=== PATIENT | female | born 1965 | race Caucasian/White ===

== ENCOUNTER 2020-06-11 21:46 | Emergency (ER) | payer OTHER, SELFPAY ==
--- NOTE | ~2020-06-11 | US_ITS ---
EXAMINATION: US VENOUS ULTRASOUND WITH DOPPLER LOWER EXTREMITY, RIGHT CLINICAL INFORMATION: Right lower extremity pain. COMPARISON: None TECHNIQUE: Ultrasound of the deep veins is performed from the hip to the calf with compression sonography and color and pulse Doppler assessment. Spectral analysis with color-flow imaging is performed. FINDINGS: There is normal venous compression and respiratory variation and augmented flow. The visualized common femoral vein, superficial femoral vein, profunda femoral vein, popliteal vein, and the trifurcation region shows no evidence of deep venous thrombosis. There is no significant popliteal fossa cyst. If the patient's symptoms persist, followup ultrasound in 5 days 7 days might be of value to exclude proximal propagation from a non-visualized calf vein. US/US venous duplex LE RT IMPRESSION: No DVT demonstrated in the right lower extremity.
[2020-06-11 21:51] VITALS: BP 143/73; BP 156/83; PULSE 100; PULSE 106; RESP 16; TEMP 36.6; O2SAT 100; O2SAT 97; BMI 30.7
[2020-06-12 00:31] VITALS: BP 142/90; PULSE 96; RESP 20; TEMP 36.6; O2SAT 98
[2020-06-12 01:07] VITALS: BP 137/63; PULSE 77; RESP 20; TEMP 36.6; O2SAT 97
--- NOTE | 2020-06-12 01:08 | ED.LOWEXIN ---
HPI - Extremity Injury (Lower) General Chief Complaint: Extremity Injury, Lower Stated Complaint: LEG PAIN Time Seen by Provider: 06/11/20 22:09 Source: patient Mode of arrival: ambulatory History of Present Illness HPI Narrative: 55-year-old female with no significant past medical history presenting to the ED complaining of right lower extremity/calf pain S/P hearing pop in leg this afternoon. States she has concern for possible blood clot. Admits went to PCP recently for similar pain and was given PT referral. Denies known injury/trauma or fall, numbness, tingling, weakness, recent travel, LE edema, smoking, SOB complaint: leg injury Related Data Allergies Allergy/AdvReac Type Severity Reaction Status Date / Time Iodinated Contrast Media Allergy Shortness Verified 06/11/20 21:56 [Contrast Dye] of Breath Sulfa (Sulfonamide Allergy Anaphylaxis Verified 06/11/20 21:56 Antibiotics) Review of Systems Review of Systems: Constitutional: No Fever, No Chills Cardiovascular: No Chest Pain, No SOB Respiratory: No Cough Musculoskeletal: + joint pain, No Myalgias, No Joint Swelling Skin: No Skin Lesions, No rash Neuro: No Weakness, No Numbness, No Paresthesias Yes all other systems are reviewed and are negative [facility] Past Medical History Attestation statement: The following information was validated with the patient. Social History Social History Advance Directives: No Advance Directives Information Provided: Yes Physical Exam Vital Signs: Vital Signs: Last Vital Signs Temp 98 F 06/12/20 01:07 Pulse 77 06/12/20 01:07 Resp 20 06/12/20 01:07 BP 137/63 06/12/20 01:07 Pulse Ox 97 06/12/20 01:07 Body Mass Index 30.7 Const: General: cooperative and healthy appearing Orientation/consciousness: patient oriented x3 Limitations: no limitations HENMT: Head: Yes normal to inspection Ears: hearing grossly normal bilaterally General nose exam: Normal external nose present Face and sinus: Yes normal facial exam Eyes: General: appearance normal, both eyes and all related structures EOM: EOMs intact bilaterally Neck: Neck: Yes normal visual inspection and Yes no meningeal signs Resp: Effort & Inspection: normal respiratory effort Cardio: Rate: regular rate Peripheral pulses: dorsalis pedis present Skin: Rashes: no rashes Wounds: no wounds Neuro: General: patient oriented x3 and no meningeal signs Gait exam (Neuro): Normal gait present Extrem: Other: Right calf with tenderness to palpation. No edema/swelling or deformity. Neurovascularly intact. General: Yes normal to inspection and Yes calf tenderness (Right) Course Course Course Narrative: US venous duplex LE RT IMPRESSION: No DVT demonstrated in the right lower extremity. >> results discussed with patient including worrisome signs and symptoms and strict return precautions. she verbalized understanding feel safe for discharge home MDM - Extremity Injury (Lower) MDM Narrative Medical decision making narrative: Concern for possible DVT vs MSK pain/strain. Low concern for PE. Low concern for fracture/dislocation Plan: Venous duplex ultrasound Discharge Plan Discharge Clinical Impression: Leg pain, right Patient Disposition: Home, Self-Care Instructions: Leg Pain (ED) Additional Instructions: Your ultrasound was negative for any blood clot If her symptoms persist is recommended you have a repeat follow-up ultrasound in 5-7 days If you develop any constant worsening pain, numbness, tingling, weakness, shortness of breath or fever return to the ED Follow-up with her doctor Take Tylenol/ Motrin for pain Referrals: Cheyenne Chatman MD [Primary Care Provider] - 5 days
--- NOTE | 2020-06-12 01:09 | PC.NURSE ---
REPORT ON PT GIVEN TO CELESTINA JON AND NED HERNANDEZ WILL BE OVER TO TALK TO PT ABOUT IMAGING.
== END 2020-06-12 01:20 | disposition home or self-care (01) ==
PROVIDERS: Emergency Provider Emergency Medicine; PCP Family Medicine
DX: M79.604 Pain in right leg (principal); R60.0 Localized edema
CPT/HCPCS: 93971; 99283

== ENCOUNTER 2024-06-28 16:24 | Emergency (ER) | payer OTHER, SELFPAY ==
--- NOTE | ~2024-06-28 | XR_ITS ---
CLINICAL HISTORY: L pinky laceration 3 views left 5th digit: Comparison: None Findings: No fractures or dislocations. No significant arthritic change. No erosions. No radiopaque foreign body. Impression: Soft tissue swelling with no acute skeletal abnormality. This document has been electronically signed by: Eliu Leung MD on 06/28/2024 17:56:54
--- NOTE | 2024-06-28 16:25 | ED_ITS ---
HPI - Skin/Abscess/Foreign Bdy General Chief complaint: Wound/Laceration Stated complaint: L pinky lac Time Seen by Provider: 06/28/24 16:35 Source: patient Mode of arrival: ambulatory Limitations: no limitations History of Present Illness ED Provider: ANETA MORENO PA-C HPI narrative: 59 year-old female presenting to the ED for evaluation of a left pinky laceration that occurred earlier today. 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 Patient unsure of date of last tetanus. Related Data Allergies Allergy/AdvReac Type Severity Reaction Status Date / Time Iodinated Contrast Media Allergy Shortness Verified 06/28/24 16:29 [Contrast Dye] of Breath Sulfa (Sulfonamide Allergy Anaphylaxis Verified 06/28/24 16:29 Antibiotics) Review of Systems Review of Systems: Yes all other systems are reviewed and are negative PMFSH Past Medical History Attestation statement: The following information was validated with the patient. Source: old records reviewed and nursing notes reviewed Social History Social History Advance Directives: No Advance Directives Information Provided: No Do you have a plan to hurt others: No Plan Physical Exam Vital Signs: Vital Signs: Last Vital Signs Temp 98.4 F 06/28/24 18:09 Pulse 78 06/28/24 18:09 Resp 16 06/28/24 18:09 BP 143/79 H 06/28/24 18:09 Pulse Ox 98 06/28/24 18:09 O2 Del Method Room Air 06/28/24 18:09 BMI result Body Mass Index 32.0 Hypertesnive. afebrile. non-hypoxic General: Well appearing, in no acute distress. Skin: Warm, dry. 1.5 cm linear superficial laceration to the ulnar aspect of base of left pinky. Head: Normocephalic, atraumatic. EENT: Hearing is intact b/l. Conjunctiva clear. Sclera is anicteric.?? Cardiac: Chest wall symmetric Lungs: Normal respiratory effort without accessory muscle use. Ext: See above. Full ROM of left pinky at MCP, PIP, DIP joints. finger strength intact. Sensation intact. Neuro: AOx3. Normal speech Course Course Course Narrative: This is an RME: Additional HPI, ROS, PE not included below will be deferred to primary provider. RME assessment and note performed by: Sadie Marks PA-C This is a [id number]-female who presents to the ER with concerns for left pinky laceration. She states that she accidentally dropped a food assembler kitchen blade and she went to catch it and ultimately lacerated her left pinky. Unsure of her last tetanus. She has a 2 cm partial-thickness laceration noted to her left pinky. With active bleeding noted. Patient to be brought back for wound repair and tetanus shot. Plan: wound repair Reevaluation(s) Reevaluation #1: X-ray left 5th digit without noted fracture or retained foreign body. Laceration appears superficial. Deep structures intact. I do not have concern for ligament or tendon injury at this time. Digital block performed using 5 mL lidocaine. Patient tolerated well. Laceration repaired. See procedure note. Patient tolerated well. Bleeding controlled. ROM intact post repair. Tdap updated today. Patient has remained stable throughout ED visit today. Discussed worrisome signs and symptoms and when to return to the ED. All questions answered at this time. Patient is agreeable with disposition and stable for discharge. Medications Administered Discontinued Medications Generic Name Dose Route Start Last Admin Trade Name Freq PRN Reason Stop Dose Admin Diphtheria/Tetanus/Acell Pertussis 0.5 ml 06/28/24 16:30 06/28/24 16:58 Diphth,Pertus(Acell),Tet Adult 0.5 Ml Syringe IM 06/28/24 16:31 0.5 ml .ONCE ONE Administration Lidocaine HCl 10 ml 06/28/24 16:46 06/28/24 17:00 Lidocaine Hcl 1 % Mpf 5 Ml Vial INFILTRATI 06/28/24 16:47 10 ml ONCE ONE Administration Medical Decision Making Medical Decision Making MDM Narrative: 59 year-old female presenting to the ED for evaluation of a left pinky laceration that occurred earlier today. Patient dropped the blade of a food assembler kitchen and attempted to catch it, which lacerated the ulnar aspect of the base of the left fifth digit. There is a 1.5 cm linear laceration with no joint or bone involvement on xray. Patient unsure of last tetanus vaccination so received Tdap vaccination today. Differential includes abrasion, avulsion, fracture, retained foreign body, laceration. unlikely tendon or ligament injury. Plan for laceration repair, Tdap booster, xray, disposition Differential Diagnosis Differential Diagnoses: The differential diagnosis associated with the pr esentation includes as above. Admission/Observation not indicated. Independent Interpretation I performed an independent interpretation of an: Plain X-Ray Interpretation: xr left 5th digit without fb, no fracture Radiology Impression Discussion of test interpretation with radiology: I have reviewed the radiologist's reading. Radiologist Impression: Procedure(s): XR finger LT min 2V Accession Number(s): [id number] cc: LYNDSAY OBANDO MD; Aneta Moreno~ CLINICAL HISTORY: L pinky laceration 3 views left 5th digit: Comparison: None Findings: No fractures or dislocations. No significant arthritic change. No erosions. No radiopaque foreign body. Impression: Soft tissue swelling with no acute skeletal abnormality. Prescription Management I considered prescription management with: Pain Medication Social Determinants Patient?s care significantly limited by Social Determinants of Health including: Other Social Determinant of Health Procedures Laceration Laceration 1: Site: hand Side (If applicable): left Size (cm): 1.5 Description: linear Depth: simple, single layer Local Anesthetic: lidocaine 1% Amount of anesthesia used (mL): 5 Pre-repair: wound explored, irrigated extensively and deep structures intact Skin layer closed with: nylon Size (cm): 4-0 Number of sutures: 4 Technique: simple, interrupted Nerve Block Nerve Block 1: Time out performed: Yes Local Anesthetic: lidocaine 1% Amount of anesthesia used (mL): 5 Side: left Nerve Blocks: digital Procedure Successful: Yes Patient Tolerated Procedure: well Complications: none Critical Care Time Critical Care Time Critical Care Time: No Discharge Plan Discharge Clinical Impression: Finger laceration Patient Disposition: Home, Self-Care Instructions: Care For Your Stitches (DC), Finger Laceration (ED) Additional Instructions: You have been evaluated in the Emergency Department today for a laceration to your left pinky. Your laceration was repaired in the ED with 4 sutures. Your tetanus vaccination was also updated and will be valid for 5-10 years. Please keep the area surrounding the laceration clean and dry. Do not get the area wet for 24 hours. After 24 hours, you may clean the area with a nonscented soap and pat to dry. Please keep the area out of the sunlight for the next 6 months to help prevent scarring.? If you develop redness or swelling at the site of your laceration or note any discharge/ fluid coming from the laceration, please come back to the ER for a wound check. I recommend you take 600mg ibuprofen every 6 hours or tylenol 650mg every 6 hours as needed for pain. If needed, you can alternate these medications so that you take one medication every 3 hours. For example, at noon take ibuprofen, then at 3pm take tylenol, then at 6pm take ibuprofen. Please follow up with your primary care physician in 10-14 days for suture removal. You may also return to the ER or another urgent care facility for this service. Return to the Emergency Department if you experience discharge from your laceration, redness around your laceration, warmth around your laceration, fever, vomiting, numbness, tingling, or any other concerning symptoms. In the case of an emergency call 911. Referrals: Lyndsay Obando MD [Primary Care Provider] - Stand Alone Forms: Work/School Release Interventions: ED Discharge Assessment Last Done: 06/28/24 18:09 Discharge Date/Time: 06/28/24 18:10 Print Language: [place]
[2024-06-28 16:26] VITALS: BP 144/75; PULSE 105; RESP 16; TEMP 36.2; O2SAT 95; BMI 32.0
--- OUTSIDE RECORDS SUMMARY | 2024-06-28 16:42 | XMS_ITS | Data Portability ---
Author Organization [facility], [facility] Address [address] [place] [address] Care Team Providers Care Web Content Editor Name Role Phone RADHA OBANDO Primary Care Provider Assessment No assessment recorded. Plan of Treatment Reminders Order Date Submit Date Provider Last Modified By Organization Details Last Modified Time Details Appointments None recorded. Lab None recorded. Referral occupationa l therapist, hand referral - bilateral cmc arthritis marixa custom thumb spica with ot exercises 2024 025 [email or web address] Not available 5 16:24:02 Procedures None recorded. Surgeries None recorded. Imaging XR, hand, 3 or more view 2023 024 [email or web address] [facility] Office, [address] [facility] [address], [address], 4 14:56:59 Medication Orders None recorded. Patient TargetsNo targets recorded. Patient InstructionsNo instructions recorded. Reason for Referral bilateral cmc arthritis marixa custom thumb spica with ot exercises Referring Physician: Radha Melendez, Orthopedic Surgery, Encounter Date: 06/27/2024 Results Created Date Observation Date Name Description Value Unit Range Abnormal Flag Note LastModifiedBy Organization Detail LastModifiedTime 08/29/19 24 08/29/2023 XR, hand, 3 or more view [email or web address] ?Encry pted=s hAaTro YD8dLq bEUv6g %2BXZw aYqtaq 0bqfl% 2Fg9IQ a4ajBk vP9nXo QUaueC m3YtLR FvZlgJ JJ8mAn HZtai3 9f4792 AC0Kub X6FUar eUC8mr 84%3D INTERFACE [facility] [address], [place], [address], 08/29/2023 13:49:00 08/29/19 24 08/29/2023 XR, hand, 3 or more view [email or web address] ?Encry pted=s hAaTro YD8dLq bEUv6g %2BXZw aYqtaq 0bqfl% 2Fg9IQ a4ajBk vP9nXo QUaueC m3YtLR FvZlgJ JJ8mAn HZtai3 1n2430 AC0Kub X6FUar eUC8mr 84%3D INTERFACE [facility] [address], [place], [address], 08/29/2023 13:49:02 Result Notes None recorded. Procedures Surgical History Date Name Laterality Status Provider Name and Address Organization Details Recorded Time 5 Small Joint Kenalog Injection, Bilateral completed Radha Ali, PA-C [address], [place], [address], [facility] 06/27/2024 15:55:46 5 Small Joint Kenalog Injection, Bilateral completed Radha Ali, PA-C [address], [place], [address], [facility] 03/21/2024 11:23:16 4 Small Joint Kenalog Injection, Bilateral completed Radha Ali, PA-C [address], [place], [address], [facility] 08/29/2023 15:04:44 Imaging Results Imaging Date Name Status LastModified by Organiz ation Details LastModified Time 08/29/2023 XR, hand, 3 or more view completed INTERFACE [facility] [address], [place], [address], 08/29/2023 13:49:00 08/29/2023 XR, hand, 3 or more view completed [facility]FACE [facility] [address], [place], [address], 08/29/2023 13:49:02 Procedure Notes None recorded. Medical Equipment None Reported. Allergies Allergen ID Allergen Name Allergen Category Reaction Reaction Severity Criticality Documentation Date Start Date Code Code System Note Provider Name and Address Organization Details Recorded Time 110900 Iodinated contrast media (substanc e) medicatio n Not available Not available Not available 09/04/20232023 78899 2003 SNOMED Aller gyNam e: 'Ivp Dye'; Not Available [facility] 4 09:09:27 49777 acetamino phen / oxycodone medicatio n Not available Not available Not available 05/14/20232022 59803 3 RxNorm Not Available [facility] 4 14:03:57 16554 Substance with sulfonami de structure and antibacte rial mechanism of action (substanc e) medicatio n Not available Not available Not available 05/14/20232022 54284 8003 SNOMED Not Available [facility] 4 14:03:57 Medications Name Sig Start Date Stop Date Status Note LastModified by Organization Details LastModified Time cyanocobala min (vit B-12) 1,000 mcg/mL injection solution INJECT 1 ML (1,000 MCG) INTRAMUSC ULARLY EVERY 30 DAYS active Not Available Not Available No t Available BD Tuberculin Syringe 1 mL 25 gauge x 5/8 USE TO INJECT ONCE DAILY EVERY 30 DAYS DIRECTED active Not Available Not Available No t Available estradiol 0.01% (0.1 mg/gram) vaginal cream PLACE 2 GRAMS VAGINALLY DAILY FOR 2 WEEKS, THEN USE TWICE A WEEK 06/24 completed Not Available Not Available Not Available acarbose 25 mg tablet TAKE 1 TABLET BY MOUTH 3 TIMES A DAY WITH MEALS. 06/24 completed Not Available Not Available Not Available bupropion HCl XL 300 mg 24 hr tablet, extended release TAKE 1 TABLET BY MOUTH EVERY DAY active Not Available Not Available No t Available bupropion HCl XL 150 mg 24 hr tablet, extended release TAKE 1 TABLET BY MOUTH EVERY DAY 06/24 completed Not Available Not Available Not Available Climara Pro 0.045 mg-0.015 mg/24 hr transdermal patch APPLY 1 PATCH ONCE A WEEK active Not Available Not Available No t Available escitalopra m 5 mg tablet TAKE 1 TABLET (5 MG TOTAL) BY MOUTH DAILY. 06/24 completed Not Available Not Available Not Available Wellbutrin XL active Not Available Not Available Not Available FreeStyle Lite Meter kit TEST BLOOD SUGAR DAILY NEEDED FOR HYPOGLYCE HANNAH SYMPTOMS active Not Available Not Available No t Available FreeStyle Lite Strips USE TO TEST BLOOD SUGAR DAILY NEEDED active Not Available Not Available No t Available Dexcom G7 Sensor device USE DIRECTED EVERY 10 DAYS 06/24 completed Not Available Not Available Not Available Vitals Date Recorded Body height Provider Name an d Address Organization Details Last Updated DateTime 08/29/2023 165.1 cm PORSHA GONZALEZ [facility] 08/29/2023 13:49:50 Date Recorded Body height Body mass index (BMI) Body weight Provider Name and Address Organization Details Last Updated DateTime 03/21/2024 165.1 cm 33.1 kg/m2 95235.88 g CHANELL BROOKS [facility] 03/21/2024 10:42:45 Date Recorded Body height Body mass index (BMI) Body weight Provider Name and Address Organization Details Last Updated DateTime 06/27/2024 165.1 cm 33.1 kg/m2 79862.88 g Carolina Lee [facility] 06/27/2024 14:51:14 Social History None recorded. Functional Status None recorded. Mental Status None recorded. Family History Nothing Reported. Medical History No medical history recorded. Gynecological HistoryNo gynecological history recorded. Obstetrics History GPAL:G 0 P 0 0 0 0 Past Encounters Encounter ID Performer Location Encounter Start Date Encounter Closed Date Diagnosis/Indication Diagnosis SNOMED-CT Code Diagnosis ICD10 Code Diagnosis Note [id number] JANNA Adames [address] [place] [address] 08/29/2023 13:25:00 09/18/2023 14:56:59 Pain of bilateral hands 7747674471 1000531 M79.641 M79.716 [id number] JANNA Adames - [place] [address] [place] [address] 03/21/2024 10:36:15 04/02/2024 15:18:32 Primary arthrosis of first carpometacarpal joints, bilateral 315357585 M18.0 [id number] Radha Melendez PA-C [facility] [place] [address] [place] [address] 06/27/2024 14:37:03 06/27/2024 15:56:04 Primary arthrosis of first carpometacarpal joints, bilateral 544730615 M18.0 Health Concerns Section Related Observation LastModified by Organization Detai ls LastModified Time None Recorded Concern Status LastModified by Organization Details LastModified Time None Recorded Advance Directives Directive None Recorded Payers Encounter Date Sequence Insurance Name Policy Number Policy Yu Covered Member ID Yu Member ID Guarantor Name 08/29/2023 1 [facility] (PPO) [id number] 1 Aj Pathak [id number] Lynn Pathak 03/21/2024 1 [facility] (PPO) [id number] 1 Aj Pathak [id number] Lynn Guimond 06/27/2024 1 [facility] (PPO) [id number] 1 Aj Pathak [id number] Lynn Willond Notes Date Note Type Note Provider Name and Address Organization Details Recorded Time 08/29/2023 text/html I am seeing this patient under the supervision of Dr. Lyles who was available but who did not see the patient.HPI: Patient is a 58-year-old female presenting to the office today for evaluation of pain at the base of the bilateral thumb. Reports the pain has been going on for a while now and has been progressively worsening. Reports the pain is worse when gripping things and worse in cold or rainy weather. Utilizes a modabber brace with minimal relief. Reports they have not had previous cortisone injections in the first CMC joints. Does report some numbness and tingling in the hands. Denies recent falls or traumatic injury.Past family, medical, social history and review of systems has been reviewed, updated and is located in the patient's chart.Examination: The patient is well appearing, alert and oriented x3 and in no acute distress. Inspection of the bilateral hand and wrist reveals no edema, atrophy, erythema, ecchymoses or deformity. Skin is intact, no open wounds. Full movement of the forearm, wrist and digits bilaterally. Intact median and ulnar innervated intrinsics. Intact extrinsic wrist and digit flexors and extensors. Intact sensation of median, ulnar and radial nerve distributions. Good capillary refill. Patient is tender about the 1st CMC joint. Otherwise nontender about the rest of the wrist, hand, and digits bilaterally. No triggering of any digit noted. Median nerve compression test positive on the right. Positive bilateral first CMC compression test. Positive bilateral first CMC grind test. Peripheral, vascular, lymphatic examination, skin, neurological, coordination, reflexes, sensation are within normal limits.X-rays ordered, obtained and reviewed independently today at [facility]: 4-view x-rays of the bilateral hand reveal no acute fractures or dislocations. 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 We discussed conservative treatment options at this time including topical and oral anti-inflammatories , brace, and cortisone injection. Patient would like to try a cortisone injection for the bilateral first CMC joint today. We discussed the role of cortisone as well as its risks and benefits. Patient would like to proceed with an injection. Under sterile technique the patient's bilateral first CMC joint where each injected with 1cc lidocaine and 1cc Kenalog. Patient tolerated the procedure well. Post procedure protocol was discussed with the patient. She would like to hold off on braces for now. Patient will follow-up on an as-needed basis. If symptoms persist or things worsen or change pressure like a cortisone injection for the right carpal tunnel she will call the office. Patient agrees with this plan. All questions were answered.Speech recognition cap cutter software was used to create portions of this document. An attempt at proofreading has been made to minimize errors. Please call for corrections. Radha Melendez PA-C [address] [facility] [address] [facility], [place], [address], [facility] 08/29/2023 15:05:03 03/21/2024 text/html I am seeing this patient under the supervision of Dr. Lyles who was available but who did not see the patient. Clinical update: Patient is here today for recheck. During last visit we gave her cortisone injections for bilateral first CMC joints. Patient reports she had good relief from the injections and would like repeat injections today. Physical exam, imaging review, impression, and plan for today's visit updated below.HPI: Patient is a 58-year-old female presenting to the office today for evaluation of pain at the base of the bilateral thumb. Reports the pain has been going on for a while now and has been progressively worsening. Reports the pain is worse when gripping things and worse in cold or rainy weather. Utilizes a modabber brace with minimal relief. Reports they have not had previous cortisone injections in the first CMC joints. Does report some numbness and tingling in the hands. Denies recent falls or traumatic injury.Past family, medical, social history and review of systems has been reviewed, updated and is located in the patient's chart.Examination: The patient is well appearing, alert and oriented x3 and in no acute distress. Inspection of the bilateral hand and wrist reveals no edema, atrophy, erythema, ecchymoses or deformity. Skin is intact, no open wounds. Full movement of the forearm, wrist and digits bilaterally. Intact median and ulnar innervated intrinsics. Intact extrinsic wrist and digit flexors and extensors. Intact sensation of median, ulnar and radial nerve distributions. Good capillary refill. Patient is tender about the 1st CMC joint. Otherwise nontender about the rest of the wrist, hand, and digits bilaterally. No triggering of any digit noted. Median nerve compression test positive on the right. Positive bilateral first CMC compression test. Positive bilateral first CMC grind test. Peripheral, vascular, lymphatic examination, skin, neurological, coordination, reflexes, sensation are within normal limits.Previous films 08/29/23: 4-view x-rays of the bilateral hand reveal no acute fractures or dislocations. 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 We discussed conservative treatment options at this time including topical and oral anti-inflammatories , brace, and cortisone injection. Patient would like to try a cortisone injection for the bilateral first CMC joint today. We discussed the role of cortisone as well as its risks and benefits. Patient would like to proceed with an injection. Under sterile technique the patient's bilateral first CMC joint where each injected with 1cc lidocaine and 1cc Kenalog. Patient tolerated the procedure well. Post procedure protocol was discussed with the patient. She would like to hold off on braces for now. Patient will follow-up on an as-needed basis. If symptoms persist or things worsen or change pressure like a cortisone injection for the right carpal tunnel she will call the office. Patient agrees with this plan. All questions were answered.Speech recognition cap cutter software was used to create portions of this document. An attempt at proofreading has been made to minimize errors. Please call for corrections. Radha Melendez PA-C [address] [place] [address] [address] [facility], [place], [address], [facility] 03/21/2024 11:23:39 06/27/2024 text/html I am seeing this patient under the supervision of Dr. Lyles who was available but who did not see the patient.Clinical update: Patient is here today for recheck. During last visit we gave her cortisone injections for bilateral first CMC joints. Patient reports she had good relief from the injections and would like repeat injections today. Physical exam, imaging review, impression, and plan for today's visit updated below.HPI: Patient is a 58-year-old female presenting to the office today for evaluation of pain at the base of the bilateral thumb. Reports the pain has been going on for a while now and has been progressively worsening. Reports the pain is worse when gripping things and worse in cold or rainy weather. Utilizes a modabber brace with minimal relief. Reports they have not had previous cortisone injections in the first CMC joints. Does report some numbness and tingling in the hands. Denies recent falls or traumatic injury.Past family, medical, social history and review of systems has been reviewed, updated and is located in the patient's chart.Examination: The patient is well appearing, alert and oriented x3 and in no acute distress. Inspection of the bilateral hand and wrist reveals no edema, atrophy, erythema, ecchymoses or deformity. Skin is intact, no open wounds. Full movement of the forearm, wrist and digits bilaterally. Intact median and ulnar innervated intrinsics. Intact extrinsic wrist and digit flexors and extensors. Intact sensation of median, ulnar and radial nerve distributions. Good capillary refill. Patient is tender about the 1st CMC joint. Otherwise nontender about the rest of the wrist, hand, and digits bilaterally. No triggering of any digit noted. Median nerve compression test positive on the right. Positive bilateral first CMC compression test. Positive bilateral first CMC grind test. Peripheral, vascular, lymphatic examination, skin, neurological, coordination, reflexes, sensation are within normal limits.Previous films 08/29/23: 4-view x-rays of the bilateral hand reveal no acute fractures or dislocations. 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 We discussed at length conservative and surgical treatment options and risks and benefits of each. Patient would like to try a cortisone injection for the bilateral first CMC joint today. We discussed the role of cortisone as well as its risks and benefits. Patient would like to proceed with an injection. Under sterile technique the patient's bilateral first CMC joint where each injected with 1cc lidocaine and 1cc Kenalog. Patient tolerated the procedure well. Post procedure protocol was discussed with the patient. She was also provided with a script for custom thumb spica splint and exercises with our office's OT Lorena. Patient will follow-up on an as-needed basis. If symptoms persist or things worsen or change she will call the office. Patient agrees with this plan. All questions were answered. The patient has weakness and instability of their extremity which requires stabilization for this semi-rigid/rigid orthosis to improve their function. Verbal and written instructions for the use and application of this item were given. Patient was instructed that should the brace result in increased pain, decreased sensation, increased swelling or an overall worsening of their medical condition, to please contact our office immediately.Speech recognition cap cutter software was used to create portions of this document. An attempt at proofreading has been made to minimize errors. Please call for corrections. Radha Melendez PA-C [address] [facility] [address] [facility], [place], [address], [facility] 06/27/2024 15:56:02 OBGyn Episode No OBEpisode recorded.
--- OUTSIDE RECORDS SUMMARY | 2024-06-28 16:42 | XMS_ITS | Continuity of Care Document ---
Author Organization [facility], [facility] [address] Address [address] [place] [address] Care Team Providers Care Regional Sales Trainer Name Role Phone RADHA OBANDO Primary Care Provider [phone] Assessment No assessment recorded. Plan of Treatment Reminders Order Date Submit Date Provider Last Modified By Organization Details Last Modified Time Details Appointments None recorded. Lab None recorded. 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 Surgeries None recorded. Imaging None recorded. Medication Orders None recorded. Patient TargetsNo targets recorded. Patient InstructionsNo instructions recorded. Reason for Referral bilateral cmc arthritis marixa custom thumb spica with ot exercises Referring Physician: Radha Melendez, Orthopedic Surgery, Encounter Date: 06/27/2024 Procedures Surgical History Date Name Laterality Status Provider Name and Address Organization Details Recorded Time 5 Small Joint Kenalog Injection, Bilateral completed Radha Melendez PA-C [address], [place], [address], [facility] 06/27/2024 15:55:46 5 Small Joint Kenalog Injection, Bilateral completed Radha Melendez PA-C [address], [place], [address], [facility] 03/21/2024 11:23:16 4 Small Joint Kenalog Injection, Bilateral completed Radha Melendez PA-C [address], [place], [address], [place] [facility] [place] [facility] 08/29/2023 15:04:44 Imaging Results None recorded. Procedure Notes None recorded. Medical Equipment None Reported. Allergies Allergen ID Allergen Name Allergen Category Reaction Reaction Severity Criticality Documentation Date Start Date Code Code System Note Provider Name and Address Organization Details Recorded Time 528204 Iodinated contrast media (substanc e) medicatio n Not available Not available Not available 09/04/20232023 16451 2004 SNOMED Aller gyNam e: 'Ivp Dye'; Not Available [facility] 4 09:09:27 22847 acetamino phen / oxycodone medicatio n Not available Not available Not available 05/14/20232022 67654 3 RxNorm Not Available [facility] 4 14:03:57 36315 Substance with sulfonami de structure and antibacte rial mechanism of action (substanc e) medicatio n Not available Not available Not available 05/14/20232022 46202 8003 SNOMED Not Available [facility] 4 14:03:57 Medications Name Sig Start [...] Not Available Vitals Date Recorded Body height Body mass index (BMI) Body weight Provider Name and Address Organization Details Last Updated DateTime 06/27/2024 165.1 cm 33.1 kg/m2 51897.88 g Carolina Lee [place] [facility] [place] [facility] 06/27/2024 14:51:14 Social History None recorded. Functional Status None recorded. Mental Status None recorded. Family History Nothing Reported. Medical History No medical history recorded. Gynecological HistoryNo gynecological history recorded. Obstetrics History GPAL:G 0 P 0 0 0 0 Past Encounters Encounter ID Performer Location Encounter Start Date Encounter Closed Date Diagnosis/Indication Diagnosis SNOMED-CT Code Diagnosis ICD10 Code Diagnosis Note [id number] JANNA Adamse [address] [place] [address] 06/27/2024 14:37:03 06/27/2024 15:56:04 Primary arthrosis of first carpometacarpal joints, bilateral 761489633 M18.0 Health Concerns Section Related Observation LastModified by Organization Detai ls LastModified Time None Recorded Concern Status LastModified by Organization Details LastModified Time None Recorded Payers Encounter Date Sequence Insurance Name Policy Number Policy Yu Covered Member ID Yu Member ID Guarantor Name 06/27/2024 1 [facility] [id number] 1 Aj Pathak [id number] Lynn Pathak Notes Date Note Type Note Provider Name and Address Organization Details Recorded Time 06/27/2024 text/html I am seeing this patient [...] to please contact our office immediately.Speech recognition healthcare risk control consultant software was used to create portions of this document. An attempt at proofreading has been made to minimize errors. Please call for corrections. Radha Melendez PA-C [address] [facility] [address], [place], [address], [facility] [place] [facility] 06/27/2024 15:56:02 OBGyn Episode No OBEpisode recorded.
[2024-06-28] MEDS: Diphth,Pertus(ACell),Tet Adult 0.5 ML SYRINGE IM (16:58)
[2024-06-28] MEDS: Lidocaine HCl 1 % MPF 5 ML VIAL 10 ML INFILTRATI (17:00)
[2024-06-28 18:09] VITALS: BP 143/79; PULSE 78; RESP 16; TEMP 36.9; O2SAT 98
== END 2024-06-28 18:10 | disposition home or self-care (01) ==
PROVIDERS: Emergency Provider Internal Medicine; PCP Family Medicine
DX: S61.217A Laceration without foreign body of left little finger without damage to nail, initial encounter (principal); W31.89XA Contact with other specified machinery, initial encounter; Y93.9 Activity, unspecified; Y92.9 Unspecified place or not applicable; Y99.9 Unspecified external cause status; Z23 Encounter for immunization
CPT/HCPCS: 12001; 73140; 90471; 90715; 99284; J2003

== ENCOUNTER → 2024-06-28 16:36 | Outpatient (BNV) | payer OTHER, SELFPAY | PROVIDERS: PCP Family Medicine; Visit Provider Radiology Diagnostic Radiology | DX: S61.219A Laceration without foreign body of unspecified finger without damage to nail, initial encounter (principal) | CPT/HCPCS: 73140 ==